=== PATIENT | male | born 1965 | race Caucasian/White ===

== ENCOUNTER 2024-04-19 14:22 | Inpatient (IN) ==
[2024-04-19 14:56] LABS: iSTAT Creatinine 1.1 mg/dl (0.6-1.3); iSTAT Hemoglobin 15.6 g/dl (14.0-18.0); iSTAT Ionized Calcium 1.05 mmol/l (1.12-1.32); iSTAT Potassium 3.8 mmol/L (3.3-5.0)
[2024-04-19 14:58] LABS: Basophils # (auto) 0.03 K/uL (0.00-0.20); Basophils % (auto) 0.4 %; Eosinophils # (auto) 0.08 K/uL (0.00-0.50); Eosinophils % (auto) 1.1 %; Hematocrit (blood only) 42.1 % (42.0-52.0); Hemoglobin 15.3 g/dl (14.0-18.0); Immature Granulocytes # (auto) 0.03 K/uL (0.01-0.20); Immature Granulocytes % (auto) 0.4 %; Lymphocytes # (auto) 1.82 K/uL (1.20-3.40); Mean Corpuscular Hemoglobin 34.6 pg (25.0-34.0); Mean Corpuscular Hgb Conc 36.3 g/dL (32.0-36.0); Mean Corpuscular Volume 95.2 fL (80.0-100.0); Mean Platelet Volume 8.4 fL (9.4-12.4); Monocytes # (auto) 0.72 K/uL (0.11-0.59); Monocytes % (auto) 10.3 %; Neutrophils # (auto) 4.32 K/uL (1.40-6.50); Neutrophils % (auto) 61.8 %; Platelet Count 239 K/uL (130-400); RDW Coefficient of Variation 12.1 % (11.5-14.5); RDW Standard Deviation 42.3 fL (36.4-46.3); Red Blood Count 4.42 M/uL (4.70-6.10)
--- NOTE | 2024-04-19 15:03 | XRay Report ---
XR chest 1V portable CLINICAL HISTORY: fall syncope nvd etoh COMPARISON STUDY: None FINDINGS: Single view portable chest demonstrates no acute cardiopulmonary process. No infiltrate or pleural effusion. No pneumothorax or atelectasis. The heart and pulmonary vascularity are unremarkable. IMPRESSION: Negative portable chest ACT 112: Negative or not required by law. Electronically signed by: Opal Bo M.D. 04/19/2024 3:02 PM
[2024-04-19 15:16] LABS: Albumin Level 4.1 gm/dl (3.4-5.0); BUN Creatinine Ratio 4.7 (10-20); Bilirubin Direct 0.1 mg/dl (0-0.2); Bilirubin,Total 0.6 mg/dl (0.2-1.0); Calcium 9.2 mg/dl (8.6-10.3); Potassium 3.6 mmol/L (3.5-5.1); Total Protein 7.1 gm/dl (6.0-8.3)
[2024-04-19 15:29] LABS: Partial Thromboplastin Ratio 1.1; Partial Thromboplastin Time 29 Seconds (21-31); Prothrombin Time 10.9 Seconds (9.0-12.0)
[2024-04-19] MEDS: OPTIRAY 320 100ml IV ONE (15:31)
--- NOTE | 2024-04-19 15:53 | CT Scan Report ---
CT head/brain wo con CLINICAL HISTORY: fall syncope nvd etoh. TECHNIQUE: Multiple axial CT images of the head were obtained without contrast. A dose lowering tech nique was utilized adhering to the principles of ALARA. CT DOSE: 1098 COMPARISON: None FINDINGS: No intracranial hemorrhage seen. No mass effect, midline shift, or hydrocephalus. No skull fracture seen. There is complete opacification of the visualized left maxillary sinus. IMPRESSION: 1. No acute intracranial findings. 2. Complete opacification of the left maxillary sinus. ACT 112: Negative or not required by law. The above report was generated using voice recognition software. It may contain grammatical, syntax o r spelling errors. Electronically signed by: Nicolás Jeff M.D. 04/19/2024 3:51 PM
--- NOTE | 2024-04-19 16:02 | CT Scan Report ---
ABDOMEN AND PELVIS CT WITH IV CONTRAST CT DOSE: 3048.73 HISTORY: fall syncope nvd etoh TECHNIQUE: Multiaxial CT images of the abdomen and pelvis were performed following the IV administrat ion of 90 cc of Optiray, A dose lowering technique was utilized adhering to the principles of ALARA. Sagittal and coronal reconstructions were done. COMPARISON STUDY: None FINDINGS: There is no acute traumatic injury identified in the abdomen or pelvis. The liver is enlarg ed. There are no focal liver lesions identified. There is borderline splenomegaly. The gallbladder an d bile ducts are unremarkable. There is some fatty involution of the pancreas. The adrenal glands are negative. There is a 4 cm Bosniak 2F cyst in the anterior aspect of the midpole the right kidney. Additional be nign appearing cysts are identified bilaterally. There is no hydronephrosis. There is no aortic aneurysm or periaortic adenopathy. There is no retroperitoneal hematoma. The bowel gas pattern is unremarkable. There is no obstruction or free air. There is no ascites. In the pelvis, the unopacified urinary bladder demonstrates mild diffuse wall thickening. The prostat e gland is moderately enlarged. There are small bilateral fat-containing inguinal hernias. IMPRESSION: No acute findings identified in the abdomen and pelvis. Bosniak 2F cyst in the right kidn ey. Recommend CT follow-up with contrast enhancement and 6 months. Hepatosplenomegaly. Mild diffuse bladder wall thickening in conjunction with enlarged prostate gland. ACT 112: Negative or not required by law. The above report was generated using voice recognition software. It may contain grammatical, syntax o r spelling errors. Electronically signed by: Opal Bo M.D. 04/19/2024 4:01 PM
[2024-04-19 16:18] LABS: Adenovirus PCR Not Detected (NotDetected); Bordetella parapertussis PCR Not Detected (NotDetected); Bordetella pertussis PCR Not Detected (NotDetected); Chlamydia pneumoniae PCR Not Detected (NotDetected); Coronavirus 229E PCR Not Detected (NotDetected); Coronavirus CoV-2 (COVID19)PCR Not Detected (NotDetected); Coronavirus HKU1 PCR Not Detected (NotDetected); Coronavirus NL63 PCR Not Detected (NotDetected); Coronavirus OC43PCR Not Detected (NotDetected); Human Metapneumovirus PCR Not Detected (NotDetected); Influenza A PCR Not Detected (NotDetected); Influenza B PCR Not Detected (NotDetected); Mycoplasma pneumoniae PCR Not Detected (NotDetected); Parainfluenza Virus 1 PCR Not Detected (NotDetected); Parainfluenza Virus 2 PCR Not Detected (NotDetected); Parainfluenza Virus 3 PCR Not Detected (NotDetected); Parainfluenza Virus 4 PCR Not Detected (NotDetected); Respiratory Syncytial VirusPCR Not Detected (NotDetected); Rhinovirus/Enterovirus PCR Not Detected (NotDetected)
--- NOTE | 2024-04-19 16:26 | CT Scan Report ---
EXAM: CT Cervical Spine Without Intravenous Contrast INDICATION: Fall. TECHNIQUE: Axial computed tomography images of the cervical spine without intravenous contrast. Sagittal and coronal reformatted images were created and reviewed. This CT exam was performed using one or more of the following dose reduction techniques: automated exposure control, adjustment of the mA and/or kV according to patient size, and/or use of iterative reconstruction technique. COMPARISON: No relevant prior studies available. FINDINGS: Limitations: None. Vertebrae: Straightening of the normal cervical curvature noted typical of spasm. There is moderate spondylosis C4-C7. Minimal facet sclerosis. No fracture or subluxation. Discs/spinal canal/neural foramina: No significant disc space abnormality or stenosis. Soft tissues: No significant abnormality noted. Vasculature: Atherosclerotic calcification of the cervical carotid and bilateral subclavian arteries. Sinuses: There is acute on chronic severe left maxillary sinusitis. There is trace thickening base of the right maxillary sinus. Lung apices: Paraseptal and centrilobular emphysematous changes noted in the lung apices. IMPRESSION: 1. Cervical degenerative changes without fracture. 2. Air-fluid layer and chronic mucosal thickening left maxillary sinus likely reflects acute on chronic sinusitis. In the setting of trauma, fracture should be considered in the appropriate clinical scenario. ACT 112: Negative or not required by law. Electronically signed by Adina Gonzáles 04-19-2024 4:25 PM
[2024-04-19] MEDS: SODIUM CHLORIDE 0.9% 1,000 ML IV SCH ×2 (16:45→18:51)
--- NOTE | 2024-04-19 17:07 | History & Physical Report ---
Date of Service April 19, 2024 Assessment & Plan (1) Hyponatremia: (2) Syncope: (3) Chronic sinusitis: (4) Alcohol abuse: Plan The patient is a 58-year-old male with a history of alcohol abuse who presented to the ED on 04/19/2024 with complaints of a syncopal episode, found to have hyponatremia Assessment and plan Syncope: -Traumatic work-up negative Check echo, orthostatic BPs, patient denies cardiac history Syncopal episode could have been secondary to alcohol abuse IV fluids, close monitoring of electrolytes, telemetry monitoring Hyponatremia: Dehydration: NA on arrival 127, check urine Osmo/lytes Likely secondary to alcohol abuse and recent nausea/vomiting and poor oral intake Light hydration for now, BMP every 8 hours Alcohol abuse: Reports drinking 6 beers daily, alcohol level on arrival 67 Alcohol withdrawal protocol, gabapentin, Ativan as needed Recommend alcohol cessation Total of 60 minutes was spent on chart review/reviewing diagnostic data/discussion with consultants/facilitating plan of care Full code DVT prophylaxis: Heparin subcu History of Present Illness Chief Complaint: Syncope/collapse Primary Care Provider: Nicolás Gonzalez DO The patient is a 58-year-old male who presents to the ED on 04/19/2024 with concerns complaints of nausea/vomiting/diarrhea over the past week and a syncopal episode today. Patient had an audiology appointment and while he was there, reported becoming lightheaded and dizzy when he stood up. Patient was then placed in a wheelchair and taken back to an exam room where he had a syncopal episode and 1 episode of emesis that the patient cannot remember. Patient denies any cardiac history. Patient reports drinking 6 beers daily and had 2 beers today prior to his audiology appointment. Denies any CP, abdominal pain or SOB. Denies any fevers or chills. Denies any blood in stool or emesis. Reports experiencing the lightheadedness with standing ongoing for months. Denies any prior syncopal episodes. Reports feeling unsteady prior to passing out. Denies blurry vision, headaches. No neuro deficits noted on exam. Saw his PCP about a week ago for n/v/d and was given immodium - symptoms improved after seeing the doctor. Reports over the past 2 weeks has been unable to tolerate any food secondary to vomiting. Had part of colon removed about 7 years ago - removed a polyp with high grade cells; Last colo was 2 years ago with small polyps moved. Follows with GI - had an EGD 4 years ago, and to his knowledge it was normal. Smokes 2 packs a day x 45 years Drinks 4-5 beers a day EKG showed normal sinus rhythm On arrival to the ED, labs remarkable for NA 127, chloride 90, CO2 21, anion gap 14, glucose 109, AST 42, alcohol level 67 Respiratory panel negative Chest x-ray negative Abdominal/pelvis CT negative Head CT showed: Complete opacification of left maxillary sinus Cervical spine CT showed: 1. Cervical degenerative changes without fracture. 2. Air-fluid layer and chronic mucosal thickening left maxillary sinus likely reflects acute on chronic sinusitis The patient will be admitted for syncope workup and management of hyponatremia Allergies Allergy/AdvReac Type Severity Reaction Status Date / Time No Known Allergies Allergy Unverified 04/19/24 17:02 Home Medications Medication Instructions Recorded Confirmed Type albuterol sulfate 90 mcg/actuation 2 puff inhalation Q6 PRN BREATHING 04/19/24 04/19/24 History aerosol inhaler allopurinol 300 mg tablet 300 mg PO DAILY 04/19/24 04/19/24 History amlodipine 2.5 mg tablet 2.5 mg PO DAILY 04/19/24 04/19/24 History folic acid 1 mg tablet 1 mg PO DAILY 04/19/24 04/19/24 History gabapentin 400 mg capsule 800 mg PO TID 04/19/24 04/19/24 History magnesium oxide 400 mg PO DAILY 04/19/24 04/19/24 History multivitamin 1 tab PO DAILY 04/19/24 04/19/24 History olodaterol 2.5 mcg/actuation mist 2 inh inhalation DAILY 04/19/24 04/19/24 History for inhalation pantoprazole 40 mg tablet,delayed 40 mg PO DAILYBB 04/19/24 04/19/24 History release sildenafil 100 mg tablet 100 mg PO UD PRN Erectile 04/19/24 04/19/24 History Dysfunction tamsulosin 0.4 mg capsule 0.4 mg PO HS 04/19/24 04/19/24 History Past Med/Surg History Problem List (Updated 04/19/24 @ 17:02 by SUJATA Cline) Alcohol abuse Chronic sinusitis Syncope Hyponatremia Social History Smoking Status: Current every day smoker Tobacco Type: Cigarettes Second Hand Exposure: No; Do You Dip or Chew Tobacco: No; Tobacco Cessation Education Requested by Patient: No Hx Alcohol Use: Yes Alcohol type: beer Hx Substance Use: No Preferred Language: [place] [employer] Machine Operator Required: No Beliefs That Will Affect Care: None Current Living Situation: Spouse Other Information That Helps Us Care for You: No Feels Safe at Home: Yes Safety Concerns: Feels Safe At This Time Assistive Devices: None Review of Systems Review of Systems: All systems reviewed & are unremarkable except as noted in HPI & below Physical Exam Constitutional: WD/WN, vitals as above Eyes: PERRL, conjunctivae normal, anicteric sclerae ENMT: external ear and nose normal, oropharynx normal Neck: trachea midline, no thyromegaly Respiratory: normal respiratory effort, lungs clear to auscultation (b/l wheezes in the bases ) no respiratory distress and no labored breathing Cardiovascular: RRR, no murmur, no edema Gastrointestinal (Abdomen): normal bowel sounds, soft, nontender, no hepatosplenomegaly Musculoskeletal: no cyanosis or clubbing, extremities motor strength 5/5 Skin: no rashes, warm and dry Neurologic: PERRL, EOMI, accommodation nl, no face palsy, no dysarthria Psychiatric: A+Ox3, euthymic affect Lymphatic: no cervical or axillary lymphadenopathy Results & Data Results & Data Vital Signs (Past 12 Hours) Vital Signs Temp Pulse Pulse Resp BP BP Pulse Ox 04/19/24 15:41 82 17 146/88 H 98 04/19/24 14:35 86 04/19/24 14:35 36.7 C 84 18 115/74 98 O2 Del Method 04/19/24 15:41 Room Air 04/19/24 14:35 04/19/24 14:35 Room Air Diagnostic Findings Laboratory Results WBC 7.00 K/ul (4.8-10.8) 04/19/24 14:38 RBC 4.42 M/uL (4.70-6.10) L 04/19/24 14:38 Hgb 15.3 g/dl (14.0-18.0) 04/19/24 14:38 POC Hgb 15.6 g/dl (14.0-18.0) 04/19/24 14:44 Hct 42.1 % (42.0-52.0) 04/19/24 14:38 POC Hct 46 % (42-52) 04/19/24 14:44 MCV 95.2 fL (80.0-100.0) 04/19/24 14:38 MCH 34.6 pg (25.0-34.0) H 04/19/24 14:38 MCHC 36.3 g/dL (32.0-36.0) H 04/19/24 14:38 RDW Std Deviation 42.3 fL (36.4-46.3) 04/19/24 14:38 RDW Coeff of Tian 12.1 % (11.5-14.5) 04/19/24 14:38 Plt Count 239 K/uL (130-400) 04/19/24 14:38 MPV 8.4 fL (9.4-12.4) L 04/19/24 14:38 Immature Gran % (Auto) 0.4 % 04/19/24 14:38 Neut % (Auto) 61.8 % 04/19/24 14:38 Lymph % (Auto) 26.0 % 04/19/24 14:38 Motley % (Auto) 10.3 % 04/19/24 14:38 Eos % (Auto) 1.1 % 04/19/24 14:38 Baso % (Auto) 0.4 % 04/19/24 14:38 Neut # (Auto) 4.32 K/uL (1.40-6.50) 04/19/24 14:38 Lymph # (Auto) 1.82 K/uL (1.20-3.40) 04/19/24 14:38 Motley # (Auto) 0.72 K/uL (0.11-0.59) H 04/19/24 14:38 Eos # (Auto) 0.08 K/uL (0.00-0.50) 04/19/24 14:38 Baso # (Auto) 0.03 K/uL (0.00-0.20) 04/19/24 14:38 Immature Gran # (Auto) 0.03 K/uL (0.01-0.20) 04/19/24 14:38 PT 10.9 Seconds (9.0-12.0) 04/19/24 14:38 INR 1.0 (0.9-1.1) 04/19/24 14:38 APTT 29 Seconds (21-31) 04/19/24 14:38 PTT Ratio 1.1 04/19/24 14:38 POC Sodium 127 mmol/L (135-144) L 04/19/24 14:44 Sodium 126 mmol/L (136-145) L 04/19/24 14:38 POC Potassium 3.8 mmol/L (3.3-5.0) 04/19/24 14:44 Potassium 3.6 mmol/L (3.5-5.1) 04/19/24 14:38 POC Chloride 90 mmol/L (101-112) L 04/19/24 14:44 Chloride 90 mmol/L (98-107) L 04/19/24 14:38 Carbon Dioxide 22 mmol/L (21-32) 04/19/24 14:38 POC Total CO2 21 mmol/L (24-31) L 04/19/24 14:44 Anion Gap 14 (3-11) H 04/19/24 14:38 POC Anion Gap 20.0 mmol/L (16-25) 04/19/24 14:44 POC BUN 3 mg/dl (7-18) L 04/19/24 14:44 BUN 5 mg/dl (6-23) L 04/19/24 14:38 Creatinine 1.07 mg/dl (0.6-1.4) 04/19/24 14:38 POC Creatinine 1.1 mg/dl (0.6-1.3) 04/19/24 14:44 Est Cr Clr Drug Dosing 83.0 ml/min 04/19/24 14:38 eGFR 79.44 04/19/24 14:38 BUN/Creatinine Ratio 4.7 (10-20) L 04/19/24 14:38 Glucose 109 mg/dl (70-99(Fasting)) H 04/19/24 14:38 POC Glucose (other) 109 mg/dl (70-99) H 04/19/24 14:44 Calcium 9.2 mg/dl (8.6-10.3) 04/19/24 14:38 POC Ioniz Calcium Silvio 1.05 mmol/l (1.12-1.32) L 04/19/24 14:44 Magnesium 2.0 mg/dl (1.7-2.4) 04/19/24 14:38 Total Bilirubin 0.6 mg/dl (0.2-1.0) 04/19/24 14:38 Direct Bilirubin 0.1 mg/dl (0-0.2) 04/19/24 14:38 AST 42 U/L (13-39) H 04/19/24 14:38 ALT 24 U/L (7-52) 04/19/24 14:38 Alkaline Phosphatase 64 U/L (34-104) 04/19/24 14:38 Total Protein 7.1 gm/dl (6.0-8.3) 04/19/24 14:38 Albumin 4.1 gm/dl (3.4-5.0) 04/19/24 14:38 Lipase 27 U/L (11-82) 04/19/24 14:38 Ethyl Alcohol mg/dL 67.1 mg/dl (<10.0) H 04/19/24 14:38 Adenovirus (PCR) Not Detected (NotDetected) 04/19/24 14:50 B. pertussis DNA (PCR) Not Detected (NotDetected) 04/19/24 14:50 B.parapertussis DNA PCR Not Detected (NotDetected) 04/19/24 14:50 C. pneumoniae DNA (PCR) Not Detected (NotDetected) 04/19/24 14:50 Coronavirus OC43 (PCR) Not Detected (NotDetected) 04/19/24 14:50 Coronavirus HKU1 (PCR) Not Detected (NotDetected) 04/19/24 14:50 Coronavirus 229E (PCR) Not Detected (NotDetected) 04/19/24 14:50 SARS-CoV-2 (PCR) Not Detected (NotDetected) 04/19/24 14:50 Coronavirus NL63 (PCR) Not Detected (NotDetected) 04/19/24 14:50 Human Metapneumovir PCR Not Detected (NotDetected) 04/19/24 14:50 Influenza Type A (PCR) Not Detected (NotDetected) 04/19/24 14:50 Influenza Type B (PCR) Not Detected (NotDetected) 04/19/24 14:50 M. pneumoniae (PCR) Not Detected (NotDetected) 04/19/24 14:50 Parainfluenza 1 (PCR) Not Detected (NotDetected) 04/19/24 14:50 Parainfluenza 2 (PCR) Not Detected (NotDetected) 04/19/24 14:50 Parainfluenza 3 (PCR) Not Detected (NotDetected) 04/19/24 14:50 Parainfluenza 4 (PCR) Not Detected (NotDetected) 04/19/24 14:50 RSV (PCR) Not Detected (NotDetected) 04/19/24 14:50 Entero/Rhino (PCR) Not Detected (NotDetected) 04/19/24 14:50 Impressions Abdomen/Pelvis CT 04/19/24 14:[address] WITH IV CONTRAST CT DOSE: 3048.73 HISTORY: fall syncope nvd etoh TECHNIQUE: Multiaxial CT images of the abdomen and pelvis were performed following the IV administration of 90 cc of Optiray, A dose lowering technique was utilized adhering to the principles of ALARA. Sagittal and coronal recons tructions were done. COMPARISON STUDY: None FINDINGS: There is no acute traumatic injury identified in the abdomen or pelvis. The liver is enlarged. There are no focal liver lesions identified. Th ere is borderline splenomegaly. The gallbladder and bile ducts are unremarkable. There is some fatty involution of the pancreas. The adrenal glands are negative. There is a 4 cm Bosniak 2F cyst in the anterior aspect of the midpole the right kidney. Additional benign appearing cysts are identified bilaterally. There is no hydronephrosis. There is no aortic aneurysm or periaortic adenopathy. There is no retroperitoneal hematoma. The bowel gas pattern is unremarkable. There is no obstruction or free air. There is no ascites. In the pelvis, the unopacified urinary bladder demonstrates mild diffuse wall thickening. The prostate gland is moderately enlarged. There are small bilateral fat-containing inguinal hernias. IMPRESSION: No acute findings identified in the abdomen and pelvis. Bosniak 2F cyst in the right kidney. Recommend CT follow-up with contrast enhancement and 6 months. Hepatosplenomegaly. Mild diffuse bladder wall thickening in conjunction with enlarged prostate gl and. ACT 112: Negative or not required by law. The above report was generated using voice recognition software. It may contain grammatical, syntax or spelling errors. Electronically signed by: Opal Bo M.D. 04/19/2024 4:[address] 04/19/24 14:38 CT head/brain wo con CLINICAL HISTORY: fall syncope nvd etoh. TECHNIQUE: Multiple axial CT images of the head were obtained without contrast. A dose lowering technique was utilized adhering to the principles of ALARA. CT DOSE: 1098 COMPARISON: None FINDINGS: No intracranial hemorrhage seen. No mass effect, midline shift, or hydrocephalus. No skull fracture seen. There is complete opacification of the visualized left maxillary sinus. IMPRESSION: 1. No acute intracranial findings. 2. Complete opacification of the left maxillary sinus. ACT 112: Negative or not required by law. The above report was generated using voice recognition software. It may contain grammatical, syntax or spelling errors. Electronically signed by: Nicolás Jeff M.D. 04/19/2024 3:[address] 04/19/24 14:39 EXAM: CT Cervical Spine Without Intravenous Contrast INDICATION: Fall. TECHNIQUE: Axial computed tomography images of the cervical spine without intravenous contrast. Sagittal and coronal reformatted images were created and reviewed. This CT exam was performed using one or more of the following dose reduction techniques: automated exposure control, adjustment of the mA and/or kV according to patient size, and/or use of iterative reconstruction technique. COMPARISON: No relevant prior studies available. FINDINGS: Limitations: None. Vertebrae: Straightening of the normal cervical curvature noted typical of spasm. There is moderate spondylosis C4-C7. Minimal facet sclerosis. No fracture or subluxation. Discs/spinal canal/neural foramina: No significant disc space abnormality or stenosis. Soft tissues: No significant abnormality noted. Vasculature: Atherosclerotic calcification of the cervical carotid and bilateral subclavian arteries. Sinuses: There is acute on chronic severe left maxillary sinusitis. There is trace thickening base of the right maxillary sinus. Lung apices: Paraseptal and centrilobular emphysematous changes noted in the lung apices. IMPRESSION: 1. Cervical degenerative changes without fracture. 2. Air-fluid layer and chronic mucosal thickening left maxillary sinus likely reflects acute on chronic sinusitis. In the setting of trauma, fracture should be considered in the appropriate clinical scenario. ACT 112: Negative or not required by law. Electronically signed by Adina Gonzáles 04-19-2024 4:25 PM Chest X-Ray 04/19/24 14:39 XR chest 1V portable CLINICAL HISTORY: fall syncope nvd etoh COMPARISON STUDY: None FINDINGS: Single view portable chest demonstrates no acute cardiopulmonary process. No infiltrate or pleural effusion. No pneumothorax or atelectasis. The heart and pulmonary vascularity are unremarkable. IMPRESSION: Negative portable chest ACT 112: Negative or not required by law. Electronically signed by: Opal Bo M.D. 04/19/2024 3:02 PM Supervising Physician Co-Signing Physician Notes Patient is a 58-year-old male with alcohol, tobacco use disorder, BPH, gout, hypertension and possible COPD and other medical problems presents with history of syncopal episode today. Patient had chronic hearing issues and while going to his audiology appointment, patient felt lightheaded and dizzy and had brief syncopal episode associated with emesis. He admits to drinking about 6 beers on daily basis. He denies any incontinence, change in vision, focal weakness, chest pain, dyspnea, abdominal pain. Admits to have ongoing nausea associated with vomiting and diarrhea over the past 1 week duration. He also admits to have intermittent dizziness with position change. Please review HPI for complete details of presentation. I personally reviewed blood work and imaging studies. His alcohol level 67.1. Sodium 126, chloride 90. BioFire negative. CT head and neck showed no acute process. Physical Exam: Vitals signs as noted above General Appearance:Moderately built and nourished, no apparent distress Head: normocephalic, Atraumatic Eyes: normal inspection, EOMI Neck: supple, Trachea midline Respiratory/Chest: Normal breath sounds, no wheezing, No accessory muscle use Cardiovascular: S1, S2, No murmur Abdomen/GI:Soft, Non tender, Bowel sounds present Extremities/Musculoskeletal:normal inspection, no edema Neurologic/Psych:AAOX3, grossly no focal neurological deficits,+Hearing aids Skin: normal color, warm Syncope Likely orthostatic/vasovagal ? Alcohol, hyponatremia contributing Agree with checking resting echo, orthostatics Monitor blood pressure closely Monitor for any arrhythmias Hyponatremia Likely secondary to dehydration from GI losses, alcohol use Check urine, serum osmolality, urine electrolytes Gentle IV fluids Monitor sodium closely Alcohol, tobacco use disorder Counseled to quit drinking, smoking Monitor for withdrawal I personally interviewed and examined the patient at bedside. I have reviewed the advanced practitioner's documentation on the date of service referred in note and agree with plan. Patient's care is coordinated with Glendy ERNST. Please refer to the documentation above for details of patient's presentation and for discussion of other issues. I spent a total of32 minutes coordinating, documenting, and providing care for this patient excluding time spent in the performance of separately billed services or time spent by another provider/QHP.
[2024-04-19 17:23] LABS: Urine Chloride < 15 mmol/L; Urine Potassium 11.8 mmol/L; Urine Sodium 14 mmol/L
[2024-04-19] MEDS ORDERED: Ativan PO Alcohol Withdrawal--Active Protocol PO PRN (18:31)
[2024-04-19] MEDS ORDERED: LORazepam 1 MG TAB PO PRN ×3 (18:31)
[2024-04-19] MEDS ORDERED: GABAPENTIN 600MG ALCOHOL WITHDRAWAL LOAD PO STA (18:31)
[2024-04-19] MEDS ORDERED: ONDANSETRON INJ 2 MG/ML 2 ML VIAL IV PRN (18:51)
[2024-04-19 19:54] LABS: BUN Creatinine Ratio 5.1 (10-20); Calcium 8.8 mg/dl (8.6-10.3); Creatinine Clr Calc Pharmacy 89.7 ml/min; Potassium 4.6 mmol/L (3.5-5.1)
[2024-04-19] MEDS: GABAPENTIN 600 MG TAB PO ONE (20:29)
[2024-04-19] MEDS: TAMSULOSIN HCL 0.4 MG CAP PO SCH (20:29)
--- NOTE | 2024-04-19 22:27 | Emergency Department Note ---
History of Present Illness General Chief complaint: Syncope Stated complaint: SYNCOPE Time Seen by Provider: 04/19/24 14:34 History of Present Illness Provider complaint: Syncope 58-year-old alcoholic male presents emergency department for syncope. Patient states he went to the [place] after drinking alcohol this morning. Patient states he drinks 6 beers every day. He states he went to the [place] and then he does not know what happened but passed out. He reports he has been having nausea vomiting diarrhea and abdominal pain for the last week. No melena or hematochezia. No hematemesis coffee-ground emesis or bilious vomiting. No fevers. No cough. Home Medications Medication Instructions Recorded Confirmed Type albuterol sulfate 90 mcg/actuation 2 puff inhalation Q6 PRN BREATHING 04/19/24 04/19/24 History aerosol inhaler allopurinol 300 mg tablet 300 mg PO DAILY 04/19/24 04/19/24 History amlodipine 2.5 mg tablet 2.5 mg PO DAILY 04/19/24 04/19/24 History folic acid 1 mg tablet 1 mg PO DAILY 04/19/24 04/19/24 History gabapentin 400 mg capsule 800 mg PO TID 04/19/24 04/19/24 History magnesium oxide 400 mg PO DAILY 04/19/24 04/19/24 History multivitamin 1 tab PO DAILY 04/19/24 04/19/24 History olodaterol 2.5 mcg/actuation mist 2 inh inhalation DAILY 04/19/24 04/19/24 History for inhalation pantoprazole 40 mg tablet,delayed 40 mg PO DAILYBB 04/19/24 04/19/24 History release sildenafil 100 mg tablet 100 mg PO UD PRN Erectile 04/19/24 04/19/24 History Dysfunction tamsulosin 0.4 mg capsule 0.4 mg PO HS 04/19/24 04/19/24 History Allergies Allergy/AdvReac Type Severity Reaction Status Date / Time No Known Allergies Allergy Unverified 04/19/24 17:02 Past Med/Surg History Problem List (Updated 04/19/24 @ 22:27 by Graham Islas MD) Alcohol abuse (Acute) Chronic sinusitis Syncope Hyponatremia (Acute) Social History Smoking Status: Current every day smoker Tobacco Type: Cigarettes Second Hand Exposure: No; Do You Dip or Chew Tobacco: No; Tobacco Cessation Education Requested by Patient: No Hx Alcohol Use: Yes Alcohol type: beer Hx Substance Use: No Preferred Language: Congolese Psychiatric Mental Health Nurse Required: No Beliefs That Will Affect Care: None Current Living Situation: Spouse Other Information That Helps Us Care for You: No Feels Safe at Home: Yes Safety Concerns: Feels Safe At This Time Assistive Devices: None Physical Exam Vital Signs Vital Signs - 24 hr 04/19/24 14:35 04/19/24 14:35 04/19/24 15:41 Temperature 36.7 C Temperature Source Oral Pulse Rate 84 86 Pulse Rate [Left Finger] 82 Pulse Rhythm [Left Finger] Regular Pulse Strength [Left Finger] Normal Respiratory Rate 18 17 Respiratory Effort / Characteristics Non-Labored Spontaneous Respiratory Depth Normal Respiratory Pattern Regular Blood Pressure 115/74 Blood Pressure [Left Arm] 146/88 H Blood Pressure Mean 87 Blood Pressure Mean [Left Arm] 107 Blood Pressure Position [Left Arm] Sitting Pulse Oximetry 98 98 Oxygen Delivery Method Room Air Room Air Sepsis Recent Fever Within 48 Hours No Sepsis New/Unexplained Change in Mental Status No Sepsis Action Taken by Nursing No Action Required 04/19/24 17:03 Temperature Temperature Source Pulse Rate Pulse Rate [Left Finger] 75 Pulse Rhythm [Left Finger] Regular Pulse Strength [Left Finger] Normal Respiratory Rate 16 Respiratory Effort / Characteristics Non-Labored Respiratory Depth Normal Respiratory Pattern Regular Blood Pressure Blood Pressure [Left Arm] 159/96 H Blood Pressure Mean Blood Pressure Mean [Left Arm] 117 Blood Pressure Position [Left Arm] Lying Pulse Oximetry 99 Oxygen Delivery Method Room Air Sepsis Recent Fever Within 48 Hours Sepsis New/Unexplained Change in Mental Status Sepsis Action Taken by Nursing Physical Exam GENERAL: He is oriented to person, place, and time. He appears well-developed and well-nourished. He does not appear distressed. HENT: Exam performed. - Head: Normocephalic and atraumatic. - Right Ear: External ear normal. No mastoid erythema - Left Ear: External ear normal. No mastoid erythema - Mouth/Throat: The oropharynx is clear and moist. No trismus in the jaw. No dental abscesses or uvula swelling. No oropharyngeal exudate or tonsillar abscesses. EYES: Conjunctivae and EOM are normal. Pupils are equal, round, and reactive to light. Right eye exhibits no discharge. Left eye exhibits no discharge. No scleral icterus. NECK: Normal range of motion. Neck supple. No JVD present. No spinous process tenderness present. No rigidity. No tracheal deviation and normal range of motion present. CV: Normal rate, regular rhythm, normal heart sounds and intact distal pulses. There is no peripheral edema. Palpable radial pulses bue. PULM/CHEST: Effort normal and breath sounds normal. No respiratory distress. No stridor. He has no wheezes. He has no rales. - Chest Wall: He exhibits no tenderness. No crepitus bilaterally. ABD: The abdomen is soft. Bowel sounds are normal. He has no distension. No mass is present. There is no tenderness. There is no rebound, no guarding, no Ibarra's sign and no tenderness at McBurney's point. Rovsig negative. MUSC/SKEL: Normal range of motion. There is no peripheral edema, tenderness or deformity. NEURO: He is alert and oriented to person, place, and time. He has normal strength. No cranial nerve deficit or sensory deficit. Coordination and gait normal. GCS eye subscore is 4. GCS verbal subscore is 5. GCS motor subscore is 6. Cerebellar tests wnl. SKIN: Skin is warm and dry. He is not diaphoretic. PSYCH: He has a normal mood and affect. Behavior is normal. Judgment and thought content normal. Course Course 1434: The patient was evaluated in room C11. A complete history and physical exam was performed Cardiac monitoring: An order was placed for continuous cardiac monitoring. The monitor shows a rate of 90 with sinus rhythm interpreted by ri 1645: Vital signs stable. Labs show a sodium of 126. Alcohol 67.1. Imaging unremarkable. Patient has no seizure-like activity or no focal neurological deficits, no need for hypertonic saline at this time. Patient will be treated with gentle hydration with normal saline, no banana bags available at this time secondary to fluid shortage according to pharmacy. Patient to be admitted to the [facility] team. Administered Medications Sodium Chloride (Nss) 1,000 mls @ 60 mls/hr IV .[id number] [facility] Stop: 04/20/24 18:29 Last Infusion: 04/19/24 19:27 Dose: 60 mls/hr Documented By: Admin: 04/19/24 18:51 Dose: 80 mls/hr Documented By: DLR Tamsulosin HCl (Tamsulosin Hcl 0.4 Mg Cap) 0.4 mg PO HS [facility] Stop: 05/19/24 20:59 Last Admin: 04/19/24 20:29 Dose: 0.4 mg Documented By: KRT Discontinued Medications Gabapentin (Gabapentin 600 Mg Tab) 600 mg PO NOW ONE Stop: 04/19/24 18:32 Last Admin: 04/19/24 20:29 Dose: 600 mg Documented By: IVETTE Sodium Chloride (Nss) 1,000 mls @ 125 mls/hr IV .Q8H [facility] Stop: 04/20/24 16:44 Last Infusion: 04/19/24 19:27 Dose: Infused Documented By: Admin: 04/19/24 16:45 Dose: 125 mls/hr Documented By: BERTHA Ioversol (Optiray 320 100ml) 90 ml IV ONCE ONE Stop: 04/19/24 15:31 Last Admin: 04/19/24 15:31 Dose: 90 ml Documented By: DARREN Medical Decision Making Laboratory Data Attestation: I reviewed the patient's lab results. 04/19/24 14:38 04/19/24 19:18 Lab Results 04/19/24 04/19/24 04/19/24 Range/Units 14:38 14:44 14:50 WBC 7.00 (4.8-10.8) K/ul RBC 4.42 L (4.70-6.10) M/uL Hgb 15.3 (14.0-18.0) g/dl POC Hgb 15.6 (14.0-18.0) g/dl Hct 42.1 (42.0-52.0) % POC Hct 46 (42-52) % MCV 95.2 (80.0-100.0) fL MCH 34.6 H (25.0-34.0) pg MCHC 36.3 H (32.0-36.0) g/dL RDW Std Deviation 42.3 (36.4-46.3) fL RDW Coeff of Tian 12.1 (11.5-14.5) % Plt Count 239 (130-400) K/uL MPV 8.4 L (9.4-12.4) fL Immature Gran % (Auto) 0.4 % Neut % (Auto) 61.8 % Lymph % (Auto) 26.0 % Henderson % (Auto) 10.3 % Eos % (Auto) 1.1 % Baso % (Auto) 0.4 % Neut # (Auto) 4.32 (1.40-6.50) K/uL Lymph # (Auto) 1.82 (1.20-3.40) K/uL Henderson # (Auto) 0.72 H (0.11-0.59) K/uL Eos # (Auto) 0.08 (0.00-0.50) K/uL Baso # (Auto) 0.03 (0.00-0.20) K/uL Immature Gran # (Auto) 0.03 (0.01-0.20) K/uL PT 10.9 (9.0-12.0) Seconds INR 1.0 (0.9-1.1) APTT 29 (21-31) Seconds PTT Ratio 1.1 POC Sodium 127 L (135-144) mmol/L Sodium 126 L (136-145) mmol/L POC Potassium 3.8 (3.3-5.0) mmol/L Potassium 3.6 (3.5-5.1) mmol/L POC Chloride 90 L (101-112) mmol/L Chloride 90 L (98-107) mmol/L Carbon Dioxide 22 (21-32) mmol/L POC Total CO2 21 L (24-31) mmol/L Anion Gap 14 H (3-11) POC Anion Gap 20.0 (16-25) mmol/L POC BUN 3 L (7-18) mg/dl BUN 5 L (6-23) mg/dl Creatinine 1.07 (0.6-1.4) mg/dl POC Creatinine 1.1 (0.6-1.3) mg/dl Est Cr Clr Drug Dosing 83.0 ml/min eGFR 79.44 BUN/Creatinine Ratio 4.7 L (10-20) Glucose 109 H (70-99(Fasting)) mg/dl POC Glucose (other) 109 H (70-99) mg/dl Osmolality 279 L (280-300) mOsm/kg Calcium 9.2 (8.6-10.3) mg/dl POC Ioniz Calcium Silvio 1.05 L (1.12-1.32) mmol/l Magnesium 2.0 (1.7-2.4) mg/dl Total Bilirubin 0.6 (0.2-1.0) mg/dl Direct Bilirubin 0.1 (0-0.2) mg/dl AST 42 H (13-39) U/L ALT 24 (7-52) U/L Alkaline Phosphatase 64 (34-104) U/L Total Protein 7.1 (6.0-8.3) gm/dl Albumin 4.1 (3.4-5.0) gm/dl Lipase 27 (11-82) U/L Urine Osmolality (500-800) mOsm/kg Urine Sodium mmol/L Urine Potassium mmol/L Urine Chloride mmol/L Ethyl Alcohol mg/dL 67.1 H (<10.0) mg/dl Adenovirus (PCR) Not Detected (NotDetected) B. pertussis DNA (PCR) Not Detected (NotDetected) B.parapertussis DNA PCR Not Detected (NotDetected) C. pneumoniae DNA (PCR) Not Detected (NotDetected) Coronavirus OC43 (PCR) Not Detected (NotDetected) Coronavirus HKU1 (PCR) Not Detected (NotDetected) Coronavirus 229E (PCR) Not Detected (NotDetected) SARS-CoV-2 (PCR) Not Detected (NotDetected) Coronavirus NL63 (PCR) Not Detected (NotDetected) Human Metapneumovir PCR Not Detected (NotDetected) Influenza Type A (PCR) Not Detected (NotDetected) Influenza Type B (PCR) Not Detected (NotDetected) M. pneumoniae (PCR) Not Detected (NotDetected) Parainfluenza 1 (PCR) Not Detected (NotDetected) Parainfluenza 2 (PCR) Not Detected (NotDetected) Parainfluenza 3 (PCR) Not Detected (NotDetected) Parainfluenza 4 (PCR) Not Detected (NotDetected) RSV (PCR) Not Detected (NotDetected) Entero/Rhino (PCR) Not Detected (NotDetected) 04/19/24 Range/Units 17:00 WBC (4.8-10.8) K/ul RBC (4.70-6.10) M/uL Hgb (14.0-18.0) g/dl POC Hgb (14.0-18.0) g/dl Hct (42.0-52.0) % POC Hct (42-52) % MCV (80.0-100.0) fL MCH (25.0-34.0) pg MCHC (32.0-36.0) g/dL RDW Std Deviation (36.4-46.3) fL RDW Coeff of Tian (11.5-14.5) % Plt Count (130-400) K/uL MPV (9.4-12.4) fL Immature Gran % (Auto) % Neut % (Auto) % Lymph % (Auto) % Henderson % (Auto) % Eos % (Auto) % Baso % (Auto) % Neut # (Auto) (1.40-6.50) K/uL Lymph # (Auto) (1.20-3.40) K/uL Henderson # (Auto) (0.11-0.59) K/uL Eos # (Auto) (0.00-0.50) K/uL Baso # (Auto) (0.00-0.20) K/uL Immature Gran # (Auto) (0.01-0.20) K/uL PT (9.0-12.0) Seconds INR (0.9-1.1) APTT (21-31) Seconds PTT Ratio POC Sodium (135-144) mmol/L Sodium (136-145) mmol/L POC Potassium (3.3-5.0) mmol/L Potassium (3.5-5.1) mmol/L POC Chloride (101-112) mmol/L Chloride (98-107) mmol/L Carbon Dioxide (21-32) mmol/L POC Total CO2 (24-31) mmol/L Anion Gap (3-11) POC Anion Gap (16-25) mmol/L POC BUN (7-18) mg/dl BUN (6-23) mg/dl Creatinine (0.6-1.4) mg/dl POC Creatinine (0.6-1.3) mg/dl Est Cr Clr Drug Dosing ml/min eGFR BUN/Creatinine Ratio (10-20) Glucose (70-99(Fasting)) mg/dl POC Glucose (other) (70-99) mg/dl Osmolality (280-300) mOsm/kg Calcium (8.6-10.3) mg/dl POC Ioniz Calcium Silvio (1.12-1.32) mmol/l Magnesium (1.7-2.4) mg/dl Total Bilirubin (0.2-1.0) mg/dl Direct Bilirubin (0-0.2) mg/dl AST (13-39) U/L ALT (7-52) U/L Alkaline Phosphatase (34-104) U/L Total Protein (6.0-8.3) gm/dl Albumin (3.4-5.0) gm/dl Lipase (11-82) U/L Urine Osmolality 147 L (500-800) mOsm/kg Urine Sodium 14 mmol/L Urine Potassium 11.8 mmol/L Urine Chloride < 15 mmol/L Ethyl Alcohol mg/dL (<10.0) mg/dl Adenovirus (PCR) (NotDetected) B. pertussis DNA (PCR) (NotDetected) B.parapertussis DNA PCR (NotDetected) C. pneumoniae DNA (PCR) (NotDetected) Coronavirus OC43 (PCR) (NotDetected) Coronavirus HKU1 (PCR) (NotDetected) Coronavirus 229E (PCR) (NotDetected) SARS-CoV-2 (PCR) (NotDetected) Coronavirus NL63 (PCR) (NotDetected) Human Metapneumovir PCR (NotDetected) Influenza Type A (PCR) (NotDetected) Influenza Type B (PCR) (NotDetected) M. pneumoniae (PCR) (NotDetected) Parainfluenza 1 (PCR) (NotDetected) Parainfluenza 2 (PCR) (NotDetected) Parainfluenza 3 (PCR) (NotDetected) Parainfluenza 4 (PCR) (NotDetected) RSV (PCR) (NotDetected) Entero/Rhino (PCR) (NotDetected) Imaging Data Attestation: I personally reviewed and interpreted this imaging study as follows: My Impression: Chest x-ray negative. Airway clear. No pneumothorax. No consolidation. No cardiomegaly or cephalization.. No free air under the diaphragm. No fractures of the skeletal structures. Radiologist's Impression: Abdomen/Pelvis CT 04/19/24 14:[address] WITH IV CONTRAST CT DOSE: 3048.73 HISTORY: fall syncope nvd etoh TECHNIQUE: Multiaxial CT images of the abdomen and pelvis were performed following the IV administration of 90 cc of Optiray, A dose lowering technique was utilized adhering to the principles of ALARA. Sagittal and coronal reconstructions were done. COMPARISON STUDY: None FINDINGS: There is no acute traumatic injury identified in the abdomen or pelvis. The liver is enlarged. There are no focal liver lesions identified. There is borderline splenomegaly. The gallbladder and bile ducts are unremarkable. There is some fatty involution of the pancreas. The adrenal glands are negative. There is a 4 cm Bosniak 2F cyst in the anterior aspect of the midpole the right kidney. Additional benign appearing cysts are identified bilaterally. There is no hydronephrosis. There is no aortic aneurysm or periaortic adenopathy. There is no retroperitoneal hematoma. The bowel gas pattern is unremarkable. There is no obstruction or free air. There is no ascites. In the pelvis, the unopacified urinary bladder demonstrates mild diffuse wall thickening. The prostate gland is moderately enlarged. There are small bilateral fat-containing inguinal hernias. IMPRESSION: No acute findings identified in the abdomen and pelvis. Bosniak 2F cyst in the right kidney. Recommend CT follow-up with contrast enhancement and 6 months. Hepatosplenomegaly. Mild diffuse bladder wall thickening in conjunction with enlarged prostate gland. ACT 112: Negative or not required by law. The above report was generated using voice recognition software. It may contain grammatical, syntax or spelling errors. Electronically signed by: Opal Bo M.D. 04/19/2024 4:[address] 04/19/24 14:38 CT head/brain wo con CLINICAL HISTORY: fall syncope nvd etoh. TECHNIQUE: Multiple axial CT images of the head were obtained without contrast. A dose lowering technique was utilized adhering to the principles of ALARA. CT DOSE: 1098 COMPARISON: None FINDINGS: No intracranial hemorrhage seen. No mass effect, midline shift, or hydrocephalus. No skull fracture seen. There is complete opacification of the visualized left maxillary sinus. IMPRESSION: 1. No acute intracranial findings. 2. Complete opacification of the left maxillary sinus. ACT 112: Negative or not required by law. The above report was generated using voice recognition software. It may contain grammatical, syntax or spelling errors. Electronically signed by: Nicolás Jeff M.D. 04/19/2024 3:[address] 04/19/24 14:39 EXAM: CT Cervical Spine Without Intravenous Contrast INDICATION: Fall. TECHNIQUE: Axial computed tomography images of the cervical spine without intravenous contrast. Sagittal and coronal reformatted images were created and reviewed. This CT exam was performed using one or more of the following dose reduction techniques: automated exposure control, adjustment of the mA and/or kV according to patient size, and/or use of iterative reconstruction technique. COMPARISON: No relevant prior studies available. FINDINGS: Limitations: None. Vertebrae: Straightening of the normal cervical curvature noted typical of spasm. There is moderate spondylosis C4-C7. Minimal facet sclerosis. No fracture or subluxation. Discs/spinal canal/neural foramina: No significant disc space abnormality or stenosis. Soft tissues: No significant abnormality noted. Vasculature: Atherosclerotic calcification of the cervical carotid and bilateral subclavian arteries. Sinuses: There is acute on chronic severe left maxillary sinusitis. There is trace thickening base of the right maxillary sinus. Lung apices: Paraseptal and centrilobular emphysematous changes noted in the lung apices. IMPRESSION: 1. Cervical degenerative changes without fracture. 2. Air-fluid layer and chronic mucosal thickening left maxillary sinus likely reflects acute on chronic sinusitis. In the setting of trauma, fracture should be considered in the appropriate clinical scenario. ACT 112: Negative or not required by law. Electronically signed by Adina Gonzáles 04-19-2024 4:25 PM Chest X-Ray 04/19/24 14:39 XR chest 1V portable CLINICAL HISTORY: fall syncope nvd etoh COMPARISON STUDY: None FINDINGS: Single view portable chest demonstrates no acute cardiopulmonary process. No infiltrate or pleural effusion. No pneumothorax or atelectasis. The heart and pulmonary vascularity are unremarkable. IMPRESSION: Negative portable chest ACT 112: Negative or not required by law. Electronically signed by: Opal Bo M.D. 04/19/2024 3:02 PM ECG Data Attestation: I personally reviewed and interpreted this ECG as follows: Rate (beats per minute): 86 Rhythm: + normal sinus ECG Intervals/blocks: + Normal QRS, + Normal NC and + Normal QT-c ECG ST segments: + Normal ST segments MDM Narrative 1434: The patient was evaluated in room C11. A complete history and physical exam was performed Cardiac monitoring: An order was placed for continuous cardiac monitoring. The monitor shows a rate of 90 with sinus rhythm interpreted by me 1645: Vital signs stable. Labs show a sodium of 126. Alcohol 67.1. Imaging unremarkable. Patient has no seizure-like activity or no focal neurological deficits, no need for hypertonic saline at this time. Patient will be treated with gentle hydration with normal saline, no banana bags available at this time secondary to fluid shortage according to pharmacy. Patient to be admitted to the [facility] team. Impression & Plan Hyponatremia, Alcohol abuse Discharge Plan Visit Data Chief Complaint: Syncope Stated Complaint: SYNCOPE ED Provider: Graham Islas Discharge Problem: Hyponatremia, Alcohol abuse Patient Disposition: Admitted As Inpatient Discharge Instructions Interventions: ED Discharge Assessment Last Done: 04/19/24 18:13
[2024-04-19] MEDS: HEPARIN SOD 5,000 UNIT/0.5 ML VIAL SQ SCH (22:30)
[2024-04-19 22:43] VITALS: RESP 20
[2024-04-19] MEDS: GABAPENTIN 100 MG CAP PO SCH (23:58)
[2024-04-20 02:57] LABS: Basophils # (auto) 0.03 K/uL (0.00-0.20); Basophils % (auto) 0.5 %; Eosinophils # (auto) 0.24 K/uL (0.00-0.50); Eosinophils % (auto) 3.8 %; Hemoglobin 14.3 g/dl (14.0-18.0); Immature Granulocytes # (auto) 0.02 K/uL (0.01-0.20); Immature Granulocytes % (auto) 0.3 %; Lymphocytes # (auto) 2.55 K/uL (1.20-3.40); Lymphocytes % (auto) 40.6 %; Mean Corpuscular Hemoglobin 34.5 pg (25.0-34.0); Mean Corpuscular Hgb Conc 36.7 g/dL (32.0-36.0); Mean Platelet Volume 8.6 fL (9.4-12.4); Monocytes # (auto) 0.69 K/uL (0.11-0.59); Neutrophils # (auto) 2.75 K/uL (1.40-6.50); Neutrophils % (auto) 43.8 %; Platelet Count 205 K/uL (130-400); RDW Coefficient of Variation 12.2 % (11.5-14.5); RDW Standard Deviation 42.1 fL (36.4-46.3); Red Blood Count 4.15 M/uL (4.70-6.10); White Blood Count 6.28 K/ul (4.8-10.8)
[2024-04-20 02:59] LABS: BUN Creatinine Ratio 7.6 (10-20); Calcium 8.4 mg/dl (8.6-10.3); Creatinine Clr Calc Pharmacy 96.5 ml/min; Potassium 4.2 mmol/L (3.5-5.1)
[2024-04-20 03:00] LABS: Albumin Globulin Ratio 1.2 (0.9-2); Albumin Level 3.5 gm/dl (3.4-5.0); BUN Creatinine Ratio 6.5 (10-20); Bilirubin,Total 0.7 mg/dl (0.2-1.0); Calcium 8.9 mg/dl (8.6-10.3); Creatinine Clr Calc Pharmacy 95.5 ml/min; Globulin 2.9 gm/dl (2.5-4.0); Potassium 4.2 mmol/L (3.5-5.1); Total Protein 6.4 gm/dl (6.0-8.3)
[2024-04-20] MEDS: PANTOprazole 40 MG TAB PO SCH (06:04)
[2024-04-20 08:06] VITALS: BP 116/79; PULSE 73; TEMP 97.3; O2SAT 97
[2024-04-20] MEDS: allopurinoL 300 MG TAB PO SCH (08:44)
[2024-04-20] MEDS: THIAMINE HCL 100 MG in SYRINGE 9 ML IV SCH (08:44)
[2024-04-20] MEDS: amLODIPine BESYLATE 5 MG TAB PO SCH (08:44)
--- NOTE | 2024-04-20 09:31 | Electrocardiogram Report ---
Test Reason : Blood Pressure : */* mmHG Vent. Rate : 86 BPM Atrial Rate : 86 BPM P-R Int : 138 ms QRS Dur : 90 ms QT Int : 368 ms P-R-T Axes : 50 2 59 degrees QTcB Int : 440 ms Normal sinus rhythm Normal ECG No previous ECGs available Confirmed by Gil Valencia ([id number]) on 04/20/2024 9:31:43 AM Referred By: REFERRED SELF Confirmed By: Gil Valencia
[2024-04-20 10:39] LABS: BUN Creatinine Ratio 7.3 (10-20); Calcium 8.7 mg/dl (8.6-10.3); Creatinine Clr Calc Pharmacy 92.5 ml/min; Potassium 4.3 mmol/L (3.5-5.1)
--- NOTE | 2024-04-20 19:14 | Discharge Summary ---
Discharge Summary Date of Service April 20, 2024 Principal Dx & Hospital Course #1 = Principal Diagnosis (1) Hyponatremia: (2) Syncope: (3) Chronic sinusitis: (4) Alcohol abuse: Plan The patient is a 58-year-old male with a history of alcohol abuse who presented to the ED on 04/19/2024 with complaints of a syncopal episode, found to have hyponatremia Assessment and plan Syncope: -Traumatic work-up negative syncope 2/2 alcohol use and dehydration, patient walking around and at baseline this morning asymptomatic this morning per patient and would like to go home Hyponatremia: Dehydration: NA on arrival 127, check urine Osmo/lytes Likely secondary to alcohol abuse and recent nausea/vomiting and poor oral intake Na improved significantly with fluids, feels back to baseline Alcohol abuse: Reports drinking 6 beers daily, alcohol level on arrival 67 patient states he will continue drinking alcohol at same level upon discharge and is not interested in sobriety or withdrawal resources - given lack of desire for sobriety, and will start drinking again at home, and patient asymptomatic, patient medically stable for discharge Notes For Next Care Provider The patient is a 58-year-old male with a history of alcohol abuse who presented to the ED on 04/19/2024 with complaints of a syncopal episode, found to have hyponatremia and positive alcohol level. Upon admission to medicine, patient was given fluids with improvement in sodium. Discussed sobriety with patient, who states he will not stop drinking, is not interested in sobriety at this time. Understands that this level of alcohol use is the cause of his syncope and understands the risks of continued drinking, including cirrhosis, liver failure, he understands this and states he will continue to drink regardless. Given improvement in sodium, asymptomatic, and clinical condition back to baseline per patient, patient medically stable for discharge. Medication Changes From Visit -none Admission HPI Per Admitting Provider The patient is a 58-year-old male who presents to the ED on 04/19/2024 with concerns complaints of nausea/vomiting/diarrhea over the past week and a syncop al episode today. Patient had an audiology appointment and while he was there, reported becoming lightheaded and dizzy when he stood up. Patient was then placed in a wheelchair and taken back to an exam room where he had a syncopal episode and 1 episode of emesis that the patient cannot remember. Patient denies any cardiac history. Patient reports drinking 6 beers daily and had 2 beers today prior to his audiology appointment. Denies any CP, abdominal pain or SOB. Denies any fevers or chills. Denies any blood in stool or emesis. Reports experiencing the lightheadedness with standing ongoing for months. Denies any prior syncopal episodes. Reports feeling unsteady prior to passing out. Denies blurry vision, headaches. No neuro deficits noted on exam. Saw his PCP about a week ago for n/v/d and was given immodium - symptoms improved after seeing the doctor. Reports over the past 2 weeks has been unable to tolerate any food secondary to vomiting. Had part of colon removed about 7 years ago - removed a polyp with high grade cells; Last colo was 2 years ago with small polyps moved. Follows with GI - had an EGD 4 years ago, and to his knowledge it was normal. Smokes 2 packs a day x 45 years Drinks 4-5 beers a day EKG showed normal sinus rhythm On arrival to the ED, labs remarkable for NA 127, chloride 90, CO2 21, anion gap 14, glucose 109, AST 42, alcohol level 67 Respiratory panel negative Chest x-ray negative Abdominal/pelvis CT negative Head CT showed: Complete opacification of left maxillary sinus Cervical spine CT showed: 1. Cervical degenerative changes without fracture. 2. Air-fluid layer and chronic mucosal thickening left maxillary sinus likely reflects acute on chronic sinusitis The patient will be admitted for syncope workup and management of hyponatremia Discharge Exam Gen: A&O 3 NAD HEENT: NCAT, EOMI, not icteric. External ears normal. No rhinorrhea. Moist muco us membranes. Neck: Supple, full range of motion, no observable masses, No meningeal sign. Lungs: No Respiratory distress. CV: RRR, no edema. Abdomen: Soft, nondistended, No rebound tenderness. MSK: No joint swelling, no redness. Skin: No rashes, petechiae, lesions. Normal color per patient. Neuro: Normal Gait, Grossly intact. No tremors or gross withdrawal symptoms noted. Psych: Appropriate for situation. Updated Medication List Medication Instructions Recorded Confirmed Type albuterol sulfate 90 mcg/actuation 2 puff inhalation Q6 PRN BREATHING 04/19/24 04/19/24 History aerosol inhaler allopurinol 300 mg tablet 300 mg PO DAILY 04/19/24 04/19/24 History amlodipine 2.5 mg tablet 2.5 mg PO DAILY 04/19/24 04/19/24 History folic acid 1 mg tablet 1 mg PO DAILY 04/19/24 04/19/24 History gabapentin 400 mg capsule 800 mg PO TID 04/19/24 04/19/24 History magnesium oxide 400 mg PO DAILY 04/19/24 04/19/24 History multivitamin 1 tab PO DAILY 04/19/24 04/19/24 History olodaterol 2.5 mcg/actuation mist 2 inh inhalation DAILY 04/19/24 04/19/24 History for inhalation pantoprazole 40 mg tablet,delayed 40 mg PO DAILYBB 04/19/24 04/19/24 History release sildenafil 100 mg tablet 100 mg PO UD PRN Erectile 04/19/24 04/19/24 History Dysfunction tamsulosin 0.4 mg capsule 0.4 mg PO HS 04/19/24 04/19/24 History Hospital Stay Data Consultations 04/19/24 16:43 ED Decision to Admit Stat Diagnostic Imagining Performed 04/19/24 14:38 CT abd pelvis IV con only Stat CT head/brain wo con Stat 04/19/24 14:39 CT cervical spine wo con Stat Pending Results Patient Have Any Pending Studies at Discharge: No Discharge Instructions Given to Patient (Per Discharging Provider) 1. Please consider sobriety, continued alcohol use will likely cause recurrent symptoms and worsening of overall health. Total Time Total Time Spent Total Time Spent (In Minutes): I spent a total of 35 minutes in direct patient care, including [id number] time with the patient and/or family, reviewing medical records, ordering and reviewing diagnostic tests, and coordinating care with other healthcare providers. This time includes: history taking, physical examination, medical decision making, counseling, ECG interpretation, imaging interpretation, lab interpretation, orders, and education, excluding time spent in the performance of separately billed services.
[2024-04-21] MEDS ORDERED: GABAPENTIN 600 MG TAB PO SCH (06:00)
[2024-04-22] MEDS ORDERED: GABAPENTIN 400 MG CAP PO SCH (06:00)
[2024-04-23] MEDS ORDERED: GABAPENTIN 100 MG CAP PO SCH (06:00)
== END 2024-04-20 14:34 | disposition home or self-care (01) | DRG 312 ==
LOC: ED 14:22 → 2S 17:19 → SUATTDRO 17:19 → 2S 18:13